=== PATIENT | female | born 1980 | race Hispanic/Latino ===

== ENCOUNTER 2017-08-07 13:46 | Emergency (ER) | payer OTHER ==
[~2017-08-07] VITALS: Ht 162.6 cm; Wt 74.4 kg
[~2017-08-07 13:46] MED LIST: MEDROL4 M2 PO; MOTRIN800 MG PO; NORCO 5-325 TA1 EACH PO
[2017-08-07 14:09] VITALS: BP 136/92
--- NOTE | 2017-08-07 14:38 | ED NECK/BACK PAIN COMPLAINT ---
History of Present Illness General Chief Complaint: Low Back Pain/Injury Stated Complaint: LOWER BACK PAIN ON RT SIDE Source: patient Exam Limitations: no limitations Vital Signs & Intake/Output Vital Signs & Intake/Output Vital Signs Date Time Temp Pulse Resp B/P B/P Pulse O2 O2 Flow FiO2 Mean Ox Delivery Rate 08/07 1409 98.5 86 16 136/92 98 Room Air Allergies Coded Allergies: NO KNOWN ALLERGIES (10/16/14) Reconcile Medications Diclofenac Potassium 50 MG TABLET 1 TAB PO TID PRN PAIN Hydrocodone/Acetaminophen ([place] 5-325 Tablet) 5 MG-325 MG TABLET 1 TAB PO BIDP PRN pain Metaxalone (Skelaxin) 800 MG TABLET 1 TAB PO TID PRN BACK SPASMS OR PAIN Methylprednisolone. (Medrol) 4 MG TAB.DS.PK 1 DP PO AD back pain 6 on day 1 then reduce by one tablet daily until gone Oxycodone HCl/Acetaminophen (Percocet 5-325 MG Tablet) 5 MG-325 MG TABLET 1 TAB PO Q6P PRN pain Triage Note: REPORTS TO ED WITH SEVERE LOWER BACK PAIN. SHE WAS EVALUATED THIS PAST TUESDAY FOR THE SAME AND SHE WAS PRESCRIBED MEDICATIONS WHICH ARE NOT HELPING SHE STATED. Triage Nurses Notes Reviewed? yes : No Patient currently breastfeeds: No HPI: Patient presents for evaluation of a severe nearly constant back pain that began gradually 9 days ago after picking up something. Patient states that she felt a twinge in the back at that time the pain has become much more severe. She was evaluated in a walk-in clinic and was placed on a muscle relaxer and nonsteroidal anti-inflammatory. She was then subsequently seen in the emergency department on of last week but the pain persists. She denies any urinary or fecal incontinence or urinary retention. She denies saddle paresthesias. She denies radiation of the pain down the lower extremity. Nothing seems to make her feel better. The pain worsens with movement and palpation over the right lower back. Past History Travel History Traveled to [place] past 21 day No Medical History Any Pertinent Medical History? see below for history Neurological: NONE EENT: NONE Cardiovascular: NONE Respiratory: NONE Gastrointestinal: constipation, R INGUINAL HERNIA Hepatic: NONE Renal: NONE Musculoskeletal: NONE Psychiatric: NONE Endocrine: NONE Blood Disorders: anemia Cancer(s): NONE [employer]OR/Reproductive: yeast infections Surgical History Surgical History: hernia repair-inguinal, R INGUINAL HERNIA REPAIR Psychosocial History What is your primary language Indonesian Tobacco Use: Never used Family History Hx Contributory? No Review of Systems Review of Systems Constitutional: Reports: no symptoms. Eyes: Reports: no symptoms. Ears, Nose, Throat, Mouth: Reports: no symptoms. Respiratory: Reports: no symptoms. Cardiovascular: Reports: no symptoms. Gastrointestinal/Abdominal: Reports: no symptoms. Musculoskeletal: Reports: see HPI. Skin: Reports: no symptoms. Neurological/Psychological: Reports: no symptoms. All Other Systems: Reviewed and Negative Physical Exam Physical Exam Neck: SEE BELOW Comments: Gen.: Well-nourished, well-developed, no acute respiratory distress. Mild to moderate distress while at rest secondary to back pain. Pain worsens with movement. Head: Normocephalic, atraumatic. Eyes: Normal inspection bilaterally Ears: Normal inspection bilaterally Nose: Normal inspection Throat/mouth : Moist mucosa Neck: Supple, full range of motion, no goiter Lungs: Quiet respirations Back: Decreased range of motion secondary to pain. Tenderness over the right sacroiliac joint without associated soft tissue swelling ecchymoses or erythema. Extremities: Normal range of motion grossly, lower extremities: No straight leg raise sign, sensation intact bilaterally (no saddle paresthesias), deep tendon reflexes normal bilaterally, sensation to light touch intact bilaterally. Neurologic: Cranial nerves grossly intact, speech is clear Skin: warm and dry Psychiatric: Calm, cooperative, no apparent delusions or hallucinations Core Measures CVA/TIA Diagnosis: No Progress Differential Diagnosis: rENAL COLIC, BACK STRAIN, PYELONEPHRITIS, SHINGLES Plan of Care: Orders Procedure Date/time Status CT ABD & PELVIS W/O IV CONTRAS 08/07 1436 Active Diagnostic Imaging: Discussed w/RAD: CT Scan. Radiology Impression: PATIENT: DUSTIN HULL PRESENT AGE: 37 PATIENT ACCOUNT NO: [id number] : 79 LOCATION: [facility] ORDERING PHYSICIAN: Jacques Burger MD SERVICE DATE: 08/07/17 EXAM TYPE : CAT - CT ABD & PELVIS W/O IV CONTRAS EXAMINATION: CT ABDOMEN AND PELVIS WITHOUT CONTRAST CLINICAL INFORMATION: Right-sided back pain. Clinical diagnosis of right renal colic is made. COMPARISON: None TECHNIQUE: Multidetector volumetric imaging was performed from the superior aspect of the liver through the pubic symphysis. Sagittal and coronal reformatted images were obtained on the technologist's workstation. DLP: 282.35 mGy-cm FINDINGS: LUNG BASES: The visualized lung bases are unremarkable. LIVER, GALLBLADDER, AND BILIARY TREE: The liver is normal in size, shape, and attenuation. No focal hepatic lesion or biliary ductal dilatation is present. The gallbladder is unremarkable with no evidence of radiopaque gallstones, gallbladder wall thickening, or obvious pericholecystic inflammatory changes. PANCREAS: Unremarkable. SPLEEN: Unremarkable. ADRENAL GLANDS: Unremarkable. KIDNEYS AND URETERS: The kidneys are normal in size, shape, and attenuation. No hydronephrosis, hydroureter, or calculi seen. No perinephric stranding. BLADDER: Suboptimally distended, grossly appear unremarkable. GASTROINTESTINAL TRACT: The small and large bowel are unremarkable. The appendix is unremarkable. ABDOMINAL WALL: No significant hernia is appreciated. LYMPH NODES: Normal. VASCULAR: Unremarkable. PELVIC VISCERA: There is no pelvic mass present. Tiny air pocket is identified within the right posterior vaginal fornix. The uterus is retroverted. There is no adnexal mass present. Small amount of free fluid is noted within the right posterior dependent part of the pelvis. OSSEOUS STRUCTURES: Unremarkable. IMPRESSION: 1. No acute intra-abdominal and/or intrapelvic pathology is present. Specifically, no radiographic evidence of any urinary tract calculi and/or obstruction is seen. 2. Incidental note is made of small amount of free fluid within the right lower posterior pelvis, of uncertain etiology. Small amount of air pocket is also identified within the right posterior vaginal fornix. DICTATED BY: Martin Cheatham MD DATE/TIME DICTATED:08/07/171513 METAL PAINTER:KEERTHI DATE/TIME TRANSCRIBED:08/07/171513 CONFIDENTIAL, DO NOT COPY WITHOUT APPROPRIATE AUTHORIZATION. <Electronically signed in Other Vendor System> SIGNED BY: Martin Cheatham MD 08/07/17 1529 Departure Departure Disposition: HOME OR SELF CARE Condition: Stable Clinical Impression Primary Impression: Sacroiliitis Secondary Impressions: Low back strain Qualifiers: Encounter type: initial encounter Qualified Code: S39.012A - Strain of muscle, fascia and tendon of lower back, initial encounter Referrals: Patient Has No Primary Care Dr (PCP/Family) Additional Instructions: Begin taking Skelaxin (muscle relaxer) as prescribed and Diclofenac (anti- inflammatory/pain reliever) as prescribed for back pain. Add Percocet if needed for back pain. Rest, no exertion or heavy lifting. Follow-up with your primary care physician within the next 72 hours if not improving. Return if any concerns or sudden worsening. Please note that there might be incidental findings in your evaluation that are unrelated to the current emergency department visit. Please notify your primary care doctor about this emergency department visit in order to obtain and review all of the testing performed so that these incidental findings can be monitored as needed. If you had an x-ray performed, please understand that some fractures may not be seen on the initial set of x-rays. If your symptoms persist you might need a repeat set of x-rays to check for such a fracture. If you had a laceration evaluated, please understand that foreign bodies such as glass or wood may not be visible to the naked eye or on plain x-rays. If the wound becomes red, swollen, increasingly more painful or if there is any drainage from the wound, please have it reevaluated by a physician for the possibility of a retained foreign body. If you're unable to follow up as outlined in the discharge instructions please return to the emergency department. Thank you for choosing the [facility] Emergency Department for your care. It was a pleasure to serve you today. Jacques Burger M.D. [facility] Departure Forms: Customer Survey General Discharge Information Prescriptions: Current Visit Scripts Diclofenac Potassium 1 TAB PO TID PRN PAIN #30 TAB Metaxalone (Skelaxin) 1 TAB PO TID PRN BACK SPASMS OR PAIN #30 TAB Oxycodone HCl/Acetaminophen (Percocet 5-325 MG Tablet) 1 TAB PO Q6P PRN pain #10 TAB
--- NOTE | 2017-08-07 15:29 | CT SCAN REPORT ---
EXAMINATION: CT ABDOMEN AND PELVIS WITHOUT CONTRAST CLINICAL INFORMATION: Right-sided back pain. Clinical diagnosis of right renal colic is made. COMPARISON: None TECHNIQUE: Multidetector volumetric imaging was performed from the superior aspect of the liver through the pubic symphysis. Sagittal and coronal reformatted images were obtained on the technologist's workstation. DLP: 282.35 mGy-cm FINDINGS: LUNG BASES: The visualized lung bases are unremarkable. LIVER, GALLBLADDER, AND BILIARY TREE: The liver is normal in size, shape, and attenuation. No focal hepatic lesion or biliary ductal dilatation is present. The gallbladder is unremarkable with no evidence of radiopaque gallstones, gallbladder wall thickening, or obvious pericholecystic inflammatory changes. PANCREAS: Unremarkable. SPLEEN: Unremarkable. ADRENAL GLANDS: Unremarkable. KIDNEYS AND URETERS: The kidneys are normal in size, shape, and attenuation. No hydronephrosis, hydroureter, or calculi seen. No perinephric stranding. BLADDER: Suboptimally distended, grossly appear unremarkable. GASTROINTESTINAL TRACT: The small and large bowel are unremarkable. The appendix is unremarkable. ABDOMINAL WALL: No significant hernia is appreciated. LYMPH NODES: Normal. VASCULAR: Unremarkable. PELVIC VISCERA: There is no pelvic mass present. Tiny air pocket is identified within the right posterior vaginal fornix. The uterus is retroverted. There is no adnexal mass present. Small amount of free fluid is noted within the right posterior dependent part of the pelvis. OSSEOUS STRUCTURES: Unremarkable. IMPRESSION: 1. No acute intra-abdominal and/or intrapelvic pathology is present. Specifically, no radiographic evidence of any urinary tract calculi and/or obstruction is seen. 2. Incidental note is made of small amount of free fluid within the right lower posterior pelvis, of uncertain etiology. Small amount of air pocket is also identified within the right posterior vaginal fornix.
[2017-08-07] MEDS ORDERED: DICLOFENAC POTA50 M1 PO (16:19)
[2017-08-07] MEDS ORDERED: PERCOCET 5-3251 EACH PO (16:19)
[2017-08-07] MEDS ORDERED: SKELAXIN800 M1 PO (16:19)
== END 2017-08-07 16:50 ==
LOC: ERH 13:46
DX: M46.1 Sacroiliitis, not elsewhere classified (principal)
CPT/HCPCS: 74176